=== PATIENT | male | born 1960 | race African-American/Black ===

== ENCOUNTER 2017-10-26 22:35 | Inpatient (IN) | payer BC ==
[~2017-10-26] VITALS: Ht 175.3 cm; Wt 97.1 kg
--- NOTE | ~2017-10-26 | 2DMMODE ---
[facility] [address] [place] [address] 2 D/M-MODE ECHOCARDIOGRAM Name: NGUYỄNTHOMAS Room #: 364-P ADM IN .R.#: [id number] Admission: 10/26/17 Attend Phys: Teo Cardona MD Discharge: Date of : 62 Date of Service: 10/27/17 0817 Report #: [id number] THIS REPORT FOR: //name// APPROVED REPORT Study performed: 10/27/2017 07:14:49 EXAM: Comprehensive 2D, Doppler, and color-flow Echocardiogram Patient Location: Bedside Room #: 364 Status: routine BSA: 2.13 HR: 70 bpm BP: 101/68 mmHg Rhythm: LBBB Other Information Study Quality: Good Indications CVA, LBBB. Hx: HTN, DM, tobacco abuse Echo Enhancing Agent Indication: Rule out Shunt Agent(s) / Amount(s) Used: Agitated Saline 6 cc 2D Dimensions RVDd: 36.35 mm LVEF(%): 23.05 (>50%) IVSd: 12.13 (7-11mm) LVOT Diam: 21.98 (18-24mm) LVDd: 47.16 mm PWd: 12.06 (7-11mm) Ascending Ao: 30.71 (22-36mm) LVDs: 42.18 (25-40mm) Aortic Root: 32.74 mm Vizcaino's LVEF: 23.05 % Volumes Left Atrial Volume (Systole) Single Plane 4CH: 45.07 mL Single Plane 2CH: 64.94 mL LA ESV Index: 29.00 mL/m2 Aortic Valve AoV Peak Moody.: 1.56 m/s AO Peak Gr.: 9.76 mmHg LVOT Max P.92 mmHg LVOT Max V: 0.85 m/s MAKEDA Vmax: 2.07 cm2 [facility] [place] [address] 2 D/M-MODE ECHOCARDIOGRAM Name: THOMAS ADRIAN Room #: 364-P [facility] IN ..#: [id number] Admission: 10/26/17 Attend Phys: Teo Cardona MD Discharge: Date of : 62 Date of Service: 10/27/17 0817 Report #: [id number] Mitral Valve E/A Ratio: 0.6 MV Decel. Time: 255.28 ms MV E Max Moody.: 0.47 m/s MV A Moody.: 0.75 m/s MV PHT: 74.03 ms IVRT: 110.73 ms Pulmonary Valve PV Peak Moody.: 1.03 m/s PV Peak Gr.: 4.20 mmHg Pulmonary Vein P Vein S: 0.43 m/s P Vein D: 0.34 m/s P Vein S/D Ratio: 1.26 Tricuspid Valve TR Peak Moody.: 2.31 m/s RAP Estimate: 5.00 mmHg TR Peak Gr.: 21.33 mmHg PA Pressure: 26.00 mmHg Left Ventricle The left ventricle is normal size. Mild concentric left ventricular hypertrophy. Left ventricular systolic function is severely decreased. Discordant septal motion LVEF is 30-35%. Mild diastolic dysfunction is present (impaired relaxation pattern). Right Ventricle The right ventricle is normal size. Right ventricle is mildly hypokinetic. Atria The left atrium size is normal. No shunting noted by contrast bubble injection. The right atrium size is normal. Aortic Valve The aortic valve is normal in structure. No aortic regurgitation is present. There is no aortic valvular stenosis. Mitral Valve The mitral valve is normal in structure. Mild mitral regurgitation. Tricuspid Valve The tricuspid valve is normal in structure. Mild tricuspid [facility] [address] [place] [address] 2 D/M-MODE ECHOCARDIOGRAM Name: THOMAS ADRIAN Room #: 364-P [facility] IN [facility]#: [id number] Admission: 10/26/17 Attend Phys: Teo Cardona MD Discharge: Date of : 62 Date of Service: 10/27/17 0817 Report #: [id number] regurgitation. Estimated PAP is 25-30mmHg. Pulmonic Valve The pulmonary valve is normal in structure. Mild pulmonic regurgitation. Great Vessels The aortic root is normal in size. The ascending aorta is normal in size. IVC is normal in size and collapses >50% with inspiration. Pericardium There is no pericardial effusion. <Conclusion> Left ventricular systolic function is severely decreased. Discordant septal motion LVEF is 30-35%. Mild diastolic dysfunction No shunting noted by contrast bubble injection. The aortic valve is normal in structure. No aortic valvular stenosis or insufficiency. The mitral valve is normal in structure. Mild mitral regurgitation. Mild tricuspid regurgitation. Estimated pulmonary artery pressure of 25-30mmHg. There is no pericardial effusion. <ELECTRONICALLY SIGNED> By: Cliff Schmidt MD, FACC 10/27/17816 6 6 Cliff Schmidt MD, FACC /INF
--- NOTE | ~2017-10-26 | HC ---
[facility] [place] [address] CONSULTATION Name: THOMAS ADRIAN Room #: 364-P ADM IN M.R.#: [id number] Admission: 10/26/17 Attend Phys: Teo Cardona MD Discharge: Date of : 62 Report #: [id number] THIS REPORT FOR: //name// CC: Teo Cardona [facility] physician/PCP DATE OF SERVICE: 10/27/2017 HISTORY OF PRESENT ILLNESS: This is a 57-year-old male patient who is not a good historian. Part of the reason is that his speech is affected because of what looks like stroke and he is not able to provide any good history. I reviewed the patient's records in the computer. It looks like that the symptoms are going on for a couple of weeks. He went to [facility] and was diagnosed with Duran's palsy and given the steroids. I do not know what workup he did. He does have underlying diabetes and he does not check his blood sugar very often and I do not know what his blood sugar was running throughout this time with the steroids. He believes he has become worst and that is the reason he came in and he is having weakness on the whole right side. REVIEW OF SYSTEMS: Positive for what looks like enlarged heart in the past. He does have a history of diabetes. It is not clear what the control of the diabetes is. He does have a history of hypertension. He says that he has a history of high cholesterol. This was his relevant 14-point review of system, which was carried out. PAST MEDICAL HISTORY: Negative for stroke according to him. FAMILY HISTORY: Positive for stroke. SOCIAL HISTORY: He smokes as well as drinks alcohol. The patient says he does not use any street drugs. PHYSICAL EXAMINATION: The patient's examinations indicate he is alert, responsive, able to follow simple commands. His speech is pretty significantly slurred. I cannot tell about the memory and fund of knowledge. Cranial nerve examination 2-12 was carried out. It demonstrates finding consistent with a right facial palsy. He is significantly weak in the right upper and right lower extremities. His position sense appeared to be intact. Reflexes does appear to be slightly increased on the right side. On the left side, he has no cerebellar sign. The best I can tell there is no papilledema. His blood pressure is 101/68, respirations 20, pulse is 71, and temperature is 98.1. LABORATORY DATA: His lab indicates slightly low sodium, but he also has a creatinine of 2.5. His carotid Doppler showed only mild disease. His MRI is pending. [address] [address] CONSULTATION Name: THOMAS ADRIAN Room #: 364-P [facility] IN ..#: [id number] Admission: 10/26/17 Attend Phys: Teo Cardona MD Discharge: Date of : 62 Report #: [id number] IMPRESSION: 1. Cerebrovascular accident. 2. It looks like cerebrovascular accident is already showing up on CT scan and that will correlate with the patient's symptoms. We will see if MRI can confirm it. 3. Diabetes. 4. History of hypertension, although the blood pressure is reasonably well here. RECOMMENDATIONS: 1. Continue aspirin. 2. We will see what the lipid profile shows in this patient. 3. This patient will need a rehab consult. 4. The patients with subcortical CVA like he has can have deterioration sometime for several days to several weeks, not much can be done about that. 5. We will go ahead and consult the rehab because I believe this patient will need rehab. Rest of the workup will depend upon the outcome of above testing. He may need a cardiology consult and may need some other workup for his renal failure. Thank you very much for this referral. By: [id number] Tip Venegas MD /nt
--- NOTE | ~2017-10-26 | HC ---
[facility] [place] [address] CONSULTATION Name: THOMAS ADRIAN Room #: 364-P ADM IN M.R.#: [id number] Admission: 10/26/17 Attend Phys: Teo Cardona MD Discharge: Date of : 62 Report #: [id number] THIS REPORT FOR: //name// CC: Teo Cardona [facility] physician/PCP DATE OF SERVICE: 10/27/2017 REASON FOR CONSULTATION: CKD. REASON FOR THE PRESENTATION: Right-sided weakness. HISTORY OF PRESENT ILLNESS: This is a 57-year-old with past medical history of diabetes mellitus, hyperlipidemia, hypertension. He visited with [facility] for right-sided facial weakness few weeks ago and was told that this is Duran's palsy. He finished the course of steroids that he was prescribed at [facility] and started to have some right-sided weakness with unsteadiness. His brother was concerned about his slurred speech and the facial droop and brought him for further evaluation and management. On presentation, he was found to have right-sided hemiparesis to left basal ganglia infarct and was admitted for further evaluation and management. He was found to have an elevated creatinine at 2.5. He was also found to have severe cardiomyopathy with an ejection fraction of around 30%. The patient is not aware of any previous kidney problems; however, he was told in [facility] that he needs to see a kidney doctor. No nonsteroidal anti-inflammatory medications intake. No family history of chronic kidney disease. PAST MEDICAL HISTORY: 1. Diabetes mellitus. 2. Hypertension. 3. Hyperlipidemia. 4. New right-sided hemiparesis. 5. Status post thoracotomy and decortication back in 1998. MEDICATIONS: 1. Metformin. 2. Carvedilol. 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 He is an everyday smoker. No drug abuse; however, he drinks up to half a pint of vodka on the weekends. FAMILY HISTORY: Mom had heart disease. Sister of cancer. REVIEW OF SYSTEMS: The patient has significant dysphasia, but able to give me a full review of system as the following: GENERAL: No fever or chills. [facility] [address] [place] [address] CONSULTATION Name: THOMAS ADRIAN Room #: 364-P [facility] IN [facility].#: [id number] Admission: 10/26/17 Attend Phys: Teo Cardona MD Discharge: Date of : 62 Report #: [id number] CARDIOVASCULAR: No chest pain or palpitation. PULMONARY: No cough or hemoptysis. GASTROINTESTINAL: No nausea and vomiting, but difficulty swallowing. GENITOURINARY: No frequency, no urgency. NEUROLOGICAL: Significant for slurred speech, facial droop, difficulty swallowing, right-sided weakness on both upper extremities and lower extremities. PHYSICAL EXAMINATION: GENERAL: He is alert, oriented. He has significant aphasia, right-sided facial droop, right-sided hemiparesis. VITAL SIGNS: Blood pressure is 114/63, pulse rate is 83. HEAD AND NECK: Right-sided facial palsy. CHEST: No crackles. CARDIOVASCULAR: Regular with no rub detected. ABDOMEN: Soft and nontender with no hepatosplenomegaly. LOWER EXTREMITIES: Trace edema. NEUROLOGIC: Evidence of right-sided weakness and right-sided hemiparesis. LABORATORY DATA: Laboratory values reviewed. Creatinine on presentation was elevated at 2.5. Sodium was 132, potassium 4.3, BUN 54. Urine studies are not done. Hemoglobin is 14.1. ASSESSMENT, IMPRESSION, PLAN: 1. Acute stroke. 2. Hypertension. 3. Diabetes mellitus. 4. Chronic kidney disease. 5. The fact that he was told at [facility] that he had some kidney issues is highly suggestive of chronic kidney disease related to his comorbid conditions including diabetes mellitus and hypertension. His blood pressure seems to be on the low side and I would try to avoid any aggressive blood pressure reduction given his acute stroke. 6. Discontinue the IV fluid given his cardiomyopathy. 7. I will send appropriate chronic kidney disease followup including urine studies, ultrasounds. 8. Repeat labs in the morning. 9. Avoid nephrotoxins. 10. Check hemoglobin A1c. 11. Check his lipid profile. 12. Defer the management of his throat to the neurological team. By: [id number] Low Quinn MD /nt
--- NOTE | ~2017-10-26 | HC ---
[facility] [place] [address] [place] [address] CONSULTATION Name: THOMAS ADRIAN JR Room #: 364-P ADM IN M.R.#: [id number] Admission: 10/26/17 Attend Phys: Teo Cardona MD Discharge: Date of : 62 Report #: [id number] THIS REPORT FOR: //name// CC: Teo Cardona [facility] physician/PCP DATE OF SERVICE: 10/27/2017 HISTORY OF PRESENT ILLNESS: The patient is a 57-year-old right-handed -[place] male who was admitted with right-sided weakness noted approximately 2 weeks ago. Apparently was evaluated at another facility approximately 2 weeks ago and was diagnosed with Duran's palsy with right facial weakness, given steroids. He has had problems with balance deficits, right upper and lower extremity weakness, has had some falls including 2 falls yesterday. 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 He was admitted to [facility] and CT scan revealed subacute changes of the left side. This is noted in the left basal ganglia. MRI is currently pending. Ultrasound of the carotid shows some mild atherosclerotic plaquing [id number] within the left common carotid, resulting in seoe-uz-oeargoau short segment stenosis. We are seeing the patient in rehabilitation medicine consultation. PAST MEDICAL HISTORY: Includes diabetes mellitus, hypertension, elevated cholesterol, left bundle branch block, Duran's palsy, right thoracotomy with decortication in 1998. ALLERGIES: No known drug allergies. MEDICATIONS: Please see the full medication listing. HABITS: Current every day smoker, 2-3 cigarettes per day for 20 years. Alcohol a couple of beers daily, drinks up to a half a pint of vodka per day on weekends. FAMILY HISTORY: Heart disease. Mother at age 77, history of cancer. Sister from cancer and another sister had a CVA. SOCIAL HISTORY: Lives in an apartment alone. There are five steps. He has a brother and a sister in the area and his brother works during the day. The sister works during the evening. 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 REVIEW OF SYSTEMS: Has concerns regarding his strength with weakness of the right side upper and lower extremity. Concerns regarding balance. Did not complain of any chest pain, shortness of breath, abdominal discomfort. No specific visual complaints. Did not offer any complaints of bowel or bladder changes. [facility] [address] [place] [address] CONSULTATION Name: THOMAS ADRIAN Room #: 364-P [facility] IN .R.#: [id number] Admission: 10/26/17 Attend Phys: Teo Cardona MD Discharge: Date of : 62 Report #: [id number] PHYSICAL EXAMINATION: GENERAL: He is a pleasant 57-year-old right-handed -[place] male in no obvious distress. VITAL SIGNS: Last recorded temperature 98.7, pulse 67, respirations 19, and blood pressure 147/91. He does have EOMs are full. I could not detect any obvious visual field neglect to confrontation. He has right facial weakness with depressed right nasolabial fold. He has functional range of motion. Strength of left upper and left lower extremity without focal weakness. Right upper extremity reveals functional range of motion, strength is a grade 4-/5 to 3+/5. He has definite decreased coordination and decreased fine finger dexterity. Right hand and right arm demonstrate clumsiness. EXTREMITIES: He is much better. Left upper extremity range of motion with normal appearing strength. Right lower extremity again is weak. I would grade him at a 3+/5. Left lower extremity is 5/5. DTRs he has a positive Do's right upper extremity, otherwise DTRs are grade 2 bilateral upper and lower extremities, there is no clonus at the right ankle. Sensation was reasonably intact to simultaneous stimulation both upper and lower extremities as well as the right face. ASSESSMENT: A 57-year-old right-handed -[place] male with the following problem list: 1. Left subcortical basal ganglia cerebrovascular accident. 2. Right-sided hemiparesis with right upper and right lower extremity weakness, right facial droop. 3. Previous diagnosis of Duran's palsy. 4. Acute renal insufficiency versus chronic kidney disease. 5. Diabetes mellitus type 2. 6. Hypertension. 7. Hyperlipidemia. 8. History of left bundle branch block. 9. History of tobacco abuse. PLAN: The patient is being seen for rehabilitation consultation. The Therapy evaluations are underway. MRI of the brain is pending. We will need to see how he does in therapies. He certainly has significant functional deficits, has had 2 falls yesterday and will likely warrant an acute in-hospital inpatient rehabilitation stay to try to further maximize his functional independence ____ stroke. We will be glad to follow along with you regarding his rehab therapy needs. <ELECTRONICALLY SIGNED> By: Johnie Wilkerson MD 10/28/17 1409 0947 1021 Johnie Wilkerson MD /[facility]
--- NOTE | ~2017-10-26 | HC ---
[facility] [place] [address] CONSULTATION Name: THOMAS ADRIAN JR Room #: 364-P ADM IN M.R.#: [id number] Admission: 10/26/17 Attend Phys: Teo Cardona MD Discharge: Date of : 62 Report #: [id number] THIS REPORT FOR: //name// CC: Teo Cardona [facility] physician/PCP DATE OF SERVICE: 10/27/2017 INDICATION: Cardiomyopathy. HISTORY OF PRESENT ILLNESS: This is a 57-year-old gentleman presenting with right-sided weakness for the past 2 weeks. It seems that he initially developed symptoms several weeks ago, evaluated in [facility] and diagnosed with Duran's palsy. Since then, he has had a progression of his right-sided facial droop and slurred speech. He then developed right-sided weakness and has had a few falls. He denies any episodes of chest pains, shortness of breath or palpitations. An echo reveals severe LV dysfunction, EF in the 30%-35% range and mild mitral regurgitation. PAST MEDICAL HISTORY: The patient reports having diabetes mellitus, hypertension and hypercholesterolemia. He has not had regular followup secondary to loss of insurance. ALLERGIES: None. MEDICATIONS: Include metformin and carvedilol 12.5 mg twice a day. SOCIAL HISTORY: Positive for tobacco use. FAMILY HISTORY: Positive for CAD. REVIEW OF SYSTEMS: A full 10-point review of systems was performed. Only the pertinent positives and negatives are described in the HPI. PHYSICAL EXAMINATION: VITAL SIGNS: Blood pressure is 120/70, heart rate is 90 beats per minute. GENERAL APPEARANCE: A well-developed, well-nourished male in no acute distress. HEAD AND EYES: Normocephalic. Sclerae are anicteric. ENT: Oral mucosa moist. NECK: Supple. LUNGS: Clear to auscultation. CARDIAC: RRR. S1, S2 positive. ABDOMEN: Soft, nontender. EXTREMITIES: No cyanosis, no edema. ECG reveals sinus rhythm, left bundle branch block. [facility] [address] [place] [address] CONSULTATION Name: THOMAS ADRIAN Room #: 364-[facility] IN [facility].#: [id number] Admission: 10/26/17 Attend Phys: Teo Cardona MD Discharge: Date of : 62 Report #: [id number] LABORATORY VALUES: White count is 9.2, hemoglobin is 14.1. Sodium is 132, creatinine is 2.5, troponin is negative. CT scan of the head reveals decreased attenuation in the left basal ganglia may represent an infarct. IMPRESSION AND PLAN: 1. Cardiomyopathy, no prior cardiac history. He offers no complaints of angina, dyspnea or congestion. We will need an ischemic evaluation. However, given his renal insufficiency, would opt for noninvasive stress testing. Continue with carvedilol. No MELINA inhibitor or ARB at this time due to renal insufficiency. 2. Cerebrovascular accident, slurred speech and right-sided weakness. Aspirin as per Neurology. 3. Hypertension, continue carvedilol. 4. Acute kidney injury, recommend renal evaluation. Hold on MELINA inhibitor or ARB. 5. Hypercholesterolemia, consider statin therapy. 6. Tobacco use, complete smoking cessation is recommended. <ELECTRONICALLY SIGNED> By: Seth Roque MD 10/28/17 0800 1707 03 Seth Roque MD /nt
--- NOTE | ~2017-10-26 | EKG ---
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 : 1960 Requested By: Cheri Washington Order Number: [id number] MD: Cliff Schmidt Measurements Intervals [place] Rate: 77 P: 55 ME: 155 QRS: 15 QRSD: 165 T: 197 QT: 421 QTc: 477 Interpretive Statements Sinus rhythm Left bundle branch block Compared to ECG 04/15/1999 07:58:00 Left bundle-branch block now present Sinus tachycardia no longer present Electronically Signed On 10-27-2017 10:34:36 CDT by Cliff Schmidt [email or web address] <ELECTRONICALLY SIGNED> By: Cliff Schmidt MD, [facility] 10/27/17 1034 2300 2300 Cliff Schmidt MD, [facility] /EPI
[2017-10-26 22:38] VITALS: BP 140/90
[2017-10-26 23:09] LABS: ABSOLUTE NEUTROPHILS 4.9 thou/uL (1.4-8.2); BASOPHILS 0.9 % (0.0-2.0); EOSINOPHILS 3.4 % (0.0-3.0); HEMATOCRIT 41.4 % (42.0-52.0); HEMOGLOBIN 14.1 gm/dL (14.0-18.0); LYMPHOCYTES 33.4 % (24.0-44.0); MCH 31.1 pg (26.0-34.0); MCHC 34.1 g/dL (28.0-37.0); MCV 91.1 fL (80.0-100.0); MONOCYTES 9.6 % (1.0-8.0); PLATELET COUNT 399 thou/uL (150-400); POLYS 52.7 % (36.0-66.0); RBC 4.55 mil/uL (4.50-6.00); RDW 13.2 % (10.5-14.5); WBC 9.2 thou/uL (4.0-11.0)
[2017-10-26] MEDS ORDERED: GLUCOPHAGE1000 MG PO (23:09)
[2017-10-26] MEDS ORDERED: CARVEDILOL12.5 MG PO (23:10)
[2017-10-26 23:18] LABS: CREATININE 2.5 mg/dL (0.7-1.3); MAGNESIUM 2.3 mg/dL (1.8-2.4); POTASSIUM 4.3 mmol/L (3.5-5.1)
[2017-10-27] VITALS (8 sets, daily range): BP systolic 101–147; BP diastolic 63–91
[2017-10-27 04:25] LABS: ALBUMIN 3.7 g/dL (3.4-5.0); DIRECT BILIRUBIN 0.1 mg/dL (<0.1-0.3); TOTAL BILIRUBIN 0.4 mg/dL (<0.1-1.0); TOTAL PROTEIN 7.5 g/dL (6.4-8.2)
[2017-10-27] MEDS ORDERED: GLUCOPHAGE XR500 MG PO (20:19)
[2017-10-27] MEDS ORDERED: ZESTORETIC 20-1 EAC2 PO (20:20)
[2017-10-27] MEDS ORDERED: LOVASTATIN 20 M20 MG PO (20:22)
[2017-10-27 22:07] LABS: GLYCOHEMOGLOBIN (HGB A1C) 6.6 % (4.8-5.6)
[2017-10-28 00:39] LABS: URINE BILIRUBIN NEGATIVE (Negative); URINE BLOOD 1+ (Negative); URINE CLARITY CLEAR; URINE COLOR YELLOW; URINE GLUCOSE-RANDOM* NEGATIVE (Negative); URINE KETONES NEGATIVE (Negative); URINE LEUKOCYTES-REFLEX NEGATIVE (Negative); URINE NITRITE-REFLEX NEGATIVE (Negative); URINE PROTEIN (DIPSTICK) NEGATIVE (Negative); URINE UROBILINOGEN 0.2 E.U./dl (0.2-1.0)
[2017-10-28 00:52] LABS: HYALINE CASTS 0-3 Few /LPF (None Seen); SQUAMOUS 0-3 Few /LPF (0-3); URINE RBC 3-10 Few /HPF (0-2)
[2017-10-28 00:53] LABS: BACTERIA-REFLEX None Seen /HPF (None Seen); CRYSTALS None Seen /LPF (None Seen); URINE WBC-REFLEX 0-5 Rare /HPF (0-5)
[2017-10-28 05:10] VITALS: BP 117/70
[2017-10-28 05:28] LABS: URINE CREATININE-RANDOM* 91.5 mg/dL; URINE PROTEIN-RANDOM* 9.8 mg/dL (<11.9)
[2017-10-28 06:26] LABS: ALBUMIN 3.4 g/dL (3.4-5.0); ANION GAP 8 mmol/L (7-16); BUN 34 mg/dL (7-18); CALCIUM 8.9 mg/dL (8.5-10.1); CHLORIDE 102 mmol/L (98-107); CHOLESTEROL 167 mg/dL (<200); CO2 23 mmol/L (21-32); CREATININE 1.8 mg/dL (0.7-1.3); GLUCOSE 102 mg/dL (74-106); HDL CHOLESTEROL 41 mg/dL (>40); LDL CHOLESTEROL 95 mg/dL (<100); MAGNESIUM 1.9 mg/dL (1.8-2.4); POTASSIUM 4.9 mmol/L (3.5-5.1); SGOT 19 U/L (15-37); SGPT 39 U/L (30-65); SODIUM 133 mmol/L (136-145); TC:HDL 4.1 Ratio (Not establshd); TOTAL BILIRUBIN 0.6 mg/dL (<0.1-1.0); TOTAL PROTEIN 7.2 g/dL (6.4-8.2); TRIGLYCERIDE 157 mg/dL (<150); TROPONIN-I < 0.04 ng/mL (<0.06); VLDL 31 mg/dL (<40)
[2017-10-28 08:04] VITALS: BP 141/96
[2017-10-28 11:23] VITALS: BP 164/104
[2017-10-28 16:10] VITALS: BP 139/88
[2017-10-28 20:20] VITALS: BP 141/81
[2017-10-29 05:35] VITALS: BP 129/85
[2017-10-29 08:29] VITALS: BP 136/94
[2017-10-29 12:00] VITALS: BP 128/81
[2017-10-29 15:41] VITALS: BP 136/97
[2017-10-29 20:30] VITALS: BP 149/89
[2017-10-30 04:30] VITALS: BP 132/92
[2017-10-30 07:49] VITALS: BP 130/83
[2017-10-30 08:00] LABS: ALBUMIN 3.1 g/dL (3.4-5.0); CALCIUM 9.1 mg/dL (8.5-10.1); CREATININE 1.6 mg/dL (0.7-1.3); PHOSPHORUS 3.2 mg/dL (2.5-4.9); POTASSIUM 4.4 mmol/L (3.5-5.1)
[2017-10-30 11:27] VITALS: BP 123/85
[2017-10-30 15:41] VITALS: BP 116/70
[2017-10-30 20:20] VITALS: BP 133/82
[2017-10-31 04:45] VITALS: BP 138/79
[2017-10-31 05:50] LABS: ABSOLUTE NEUTROPHILS 4.6 thou/uL (1.4-8.2); BASOPHILS 1.3 % (0.0-2.0); EOSINOPHILS 4.8 % (0.0-3.0); HEMATOCRIT 34.9 % (42.0-52.0); HEMOGLOBIN 12.3 gm/dL (14.0-18.0); LYMPHOCYTES 30.4 % (24.0-44.0); MCH 31.9 pg (26.0-34.0); MCHC 35.3 g/dL (28.0-37.0); MCV 90.6 fL (80.0-100.0); MONOCYTES 9.7 % (1.0-8.0); PLATELET COUNT 347 thou/uL (150-400); POLYS 53.8 % (36.0-66.0); RBC 3.86 mil/uL (4.50-6.00); RDW 12.6 % (10.5-14.5); WBC 8.6 thou/uL (4.0-11.0)
[2017-10-31 06:06] LABS: CALCIUM 8.9 mg/dL (8.5-10.1); CREATININE 1.6 mg/dL (0.7-1.3); PHOSPHORUS 3.8 mg/dL (2.5-4.9); POTASSIUM 4.4 mmol/L (3.5-5.1)
[2017-10-31 08:17] VITALS: BP 139/93
[2017-10-31 12:09] LABS: KAPPA FREE LIGHT CHAINS 33.1 mg/L (3.3-19.4); KAPPA/LAMBDA RATIO 1.72 (0.26-1.65); LAMBDA FREE LIGHT CHAINS 19.3 mg/L (5.7-26.3)
[2017-10-31 12:36] VITALS: BP 140/89
[2017-10-31] MEDS ORDERED: ACETAMINOPHEN325 M1 PO (14:26)
[2017-10-31] MEDS ORDERED: CARVEDILOL12.5 MG PO (14:26)
[2017-10-31] MEDS ORDERED: LOVASTATIN 20 M20 MG PO (14:31)
[2017-10-31 15:07] LABS: GLOBULIN TOTAL 3.9 g/dL (2.2-3.9); M-SPIKE Not Observed g/dL (Not Observed)
== END 2017-10-31 15:57 | DRG 65 ==
LOC: ER 22:35 → 3W 23:59 → EROBS 23:59 → 3W 10-27 00:42
PROVIDERS: Emergency Medicine; Hospitalist; Internal Medicine Nephrology; Nurse Practitioner Acute Care; Psychiatry & Neurology Neuromuscular Medicine
DX: I63.9 Cerebral infarction, unspecified (principal); G81.91 Hemiplegia, unspecified affecting right dominant side; I42.9 Cardiomyopathy, unspecified; N17.9 Acute kidney failure, unspecified; F17.210 Nicotine dependence, cigarettes, uncomplicated; G51.0 Bell's palsy; I44.7 Left bundle-branch block, unspecified; E78.5 Hyperlipidemia, unspecified; E11.22 Type 2 diabetes mellitus with diabetic chronic kidney disease; I12.9 Hypertensive chronic kidney disease with stage 1 through stage 4 chronic kidney disease, or unspecified chronic kidney disease; N18.9 Chronic kidney disease, unspecified; E78.00 Pure hypercholesterolemia, unspecified; Z82.3 Family history of stroke; Z79.899 Other long term (current) drug therapy; Z79.84 Long term (current) use of oral hypoglycemic drugs; Z82.49 Family history of ischemic heart disease and other diseases of the circulatory system; Z23 Encounter for immunization
CPT/HCPCS: 10879

== ENCOUNTER 2017-10-31 12:08 | Inpatient (IN) | payer BC ==
[~2017-10-31] VITALS: Ht 175.3 cm; Wt 96.6 kg
--- NOTE | ~2017-10-31 | H ---
[facility] [place] [place] [address] HISTORY AND PHYSICAL Name: THOMAS ADRIAN Room #: 509-P DIS IN M.R.#: [id number] Admission: 10/31/17 Attend Phys: Johnie Wilkerson MD Discharge: 11/10/17 Date of : 62 Report #: [id number] THIS REPORT FOR: //name// CC: Johnie Wilkerson [facility] physician/PCP DATE OF SERVICE: 10/31/2017 ADDENDUM Neurology indicates that the patient may warrant a 30-day event monitor for AFib. I would like to defer that to Cardiology. The patient will need to have contact with Dr. Roque and follow up with him post-discharge. Dr. Roque's note, however, indicates he should continue with his medications and follow up at [facility] upon discharge. This will need to be further clarified. <ELECTRONICALLY SIGNED> By: Johnie Wilkerson MD 11/16/17 1454 0815 0844 Johnie Wilkerson MD /[facility]
--- NOTE | ~2017-10-31 | PLAN ---
[facility] [place] [place] [address] REHAB UNIT PLAN OF CARE Name: THOMAS ADRIAN JR Room #: 509-P [facility] IN M.R.#: [id number] Admission: 10/31/17 Attend Phys: Johnie Wilkerson MD Discharge: 11/10/17 Date of : 62 Report #: [id number] THIS REPORT FOR: //name// CC: Johnie Wilkerson [facility] physician/PCP DATE OF SERVICE: 11/03/2017 SUBJECTIVE: The patient is a 57-year-old male seen back today in followup. Last recorded temperature 98.6, pulse 84, respirations 19, blood pressure is 135/75. He is alert, dysarthric. He does have right-sided hemiparesis. Transfers are supervision with gait standby assistance 250 feet without a device. In occupational therapy, lower body dressing is contact guard. In speech therapy, he has mild comprehensive deficits. He is on a regular diet with all liquids. ASSESSMENT: 1. Left subcortical basal ganglia cerebrovascular accident. 2. Right-sided hemiparesis with right upper extremity and right lower extremity weakness and right facial droop. 3. Previous diagnosis of Duran's palsy. 4. Acute renal insufficiency versus chronic kidney disease. 5. Cardiomyopathy, possibly due to hypertensive or idiopathic. 6. Hypercholesterolemia. 7. Tobacco abuse. 8. Hypertension. 9. History of left bundle-branch block. PLAN: The overall plan of care is based on the preadmission screen, post-admission physician evaluation and information garnered from therapy assessments. 1. Estimated length of stay is probably 1 week. We have tentatively set him up for a discharge date of next , 11/10/2017. 2. Medical prognosis is reasonably good. 3. Anticipated interventions includes the interdisciplinary acute inpatient rehabilitation program with the goal of maximizing his functional independence. He can hopefully return back to his prior living situation. 4. Anticipated functional outcome would be for him to become modified independent at least at the walker level with mobility and ADLs with improved communication as well as cognition. 5. Discharge destination would be back to the home setting. 6. Expected therapy by discipline includes PT, OT and speech 1 hour per day [address] [address] REHAB UNIT PLAN OF CARE Name: THOMAS ADRIAN Room #: 509-P [facility] IN .R.#: [id number] Admission: 10/31/17 Attend Phys: Johnie Wilkerson MD Discharge: 11/10/17 Date of : 62 Report #: [id number] each 5 days a week throughout the duration of the acute inpatient rehabilitation stay. <ELECTRONICALLY SIGNED> By: Johnie Wilkerson MD 11/16/17 1504 0923 2343 Johnie Wilkerson MD /PMT
--- NOTE | ~2017-10-31 | H ---
[facility] [place] [address] HISTORY AND PHYSICAL Name: THOMAS ADRIAN JR Room #: 509-P [facility] IN M.R.#: [id number] Admission: 10/31/17 Attend Phys: Johnie Wilkerson MD Discharge: 11/10/17 Date of : 62 Report #: [id number] THIS REPORT FOR: //name// CC: Johnie Wilkerson [facility] physician/PCP DATE OF SERVICE: 10/31/2017 HISTORY AND PHYSICAL/POST-ADMISSION PHYSICIAN EVALUATION HISTORY OF PRESENT ILLNESS: The patient is a 57-year-old right-handed -[place]i male, who was admitted to [facility] originally with right-sided weakness that was noted to have occurred approximately 2 weeks ago. Apparently, he was evaluated at another facility at that time and diagnosed with Duran's palsy with right facial weakness, given steroids. He has had problems with balance deficits, right upper and right lower extremity weakness, and he has had some falls including 2 falls on the day prior to his [facility] admission. 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 Upon admission, CT scan revealed subacute changes of the left side noted in the left basal ganglia. MRI showed an acute recent infarct within the left hackett radiata, parietal periventricular white matter. MRA showed no evidence of hemodynamically significant stenosis. Ultrasound showed some mild atherosclerotic plaquing, wpyc-ng-pdsvkyvc, within the left common carotid, resulting in smud-vb-gyzjigbk short segment stenosis. Cardiology saw him and he was diagnosed with cardiomyopathy, possibly due to hypertensive or idiopathic. Nuclear stress test was noted to be nonischemic. Plan was to continue with the medical therapy. He continued with the slurred speech and right-sided weakness. He was noted to have significant functional mobility, ADLs and cognitive communication concerns. He had an acute renal injury with an elevated creatinine and Nephrology has been involved. He was felt to be ready and has now been admitted for acute in-hospital inpatient rehabilitation. PAST MEDICAL HISTORY: Includes diabetes mellitus, hypertension, elevated cholesterol, left bundle branch block, Duran's palsy, right thoracotomy with decortication in 1998. ALLERGIES: No known drug allergies. MEDICATIONS: Please see the full medication listing. Each of these was individually reconciled and includes vitamins, herbals and supplements. HABITS: Current everyday smoker, 2-3 cigarettes per day for 20 years. Alcohol is a couple of beers daily, drinks up to a half a pint of vodka per day on weekends. FAMILY HISTORY: Heart disease. Mother at age 77 with history of cancer. [address] [address] HISTORY AND PHYSICAL Name: THOMAS ADRIAN Room #: 509-P [facility] IN M.R.#: [id number] Admission: 10/31/17 Attend Phys: Johnie Wilkerson MD Discharge: 11/10/17 Date of : 62 Report #: [id number] Sister from cancer and another sister had a CVA. SOCIAL HISTORY: Lives in an apartment alone. There are 5 steps in. He has a brother and a sister in the area and his brother works during the day, his sister works during the evening. 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 REVIEW OF SYSTEMS: He has concerns regarding balance, his slurred speech, right-sided weakness. No complaints of chest pain, shortness of breath or abdominal discomfort. PHYSICAL EXAMINATION: GENERAL: Pleasant 57-year-old -S[place]i male, in no obvious distress. He was seen earlier. He was rather sleepy, but responsive. VITAL SIGNS: Last recorded temperature is 98.8, pulse 69, respirations 18, blood pressure 146/90. HEENT: EOMs appeared to be full without any obvious visual field neglect to confrontation. He has got the mild right facial weakness. He has a depressed right nasolabial fold. CHEST: Sounded clear to auscultation. CARDIAC: Regular rate and rhythm. ABDOMEN: Bowel sounds positive, nontender. GENITOURINARY AND RECTAL: Deferred. MUSCULOSKELETAL: Functional range of motion with strength full of the left upper and left lower extremity. Right upper extremity revealed functional range of motion with strength grade 4-/5 to 3+/5. He has decreased coordination of that right upper extremity with fine finger dexterity. He does have some right upper extremity clumsiness. Right lower extremity is a grade 3+ to 4-/5. DTRs reveal positive Do's to right upper extremity. Lower extremity is grade 2. There is no clonus. Sensation was recently checked during my consult and was reasonably intact to simultaneous stimulation of both upper extremities and right face. Functionally, he has been transferring with standby assistance with gait min assist short distances. ASSESSMENT: 1. Left subcortical basal ganglia cerebrovascular accident. 2. Right-sided hemiparesis with right upper extremity and right lower extremity weakness and right facial droop. 3. Previous diagnosis of Duran's palsy. 4. Acute renal insufficiency versus chronic kidney disease. 5. Cardiomyopathy, possibly due to hypertensive or idiopathic. 6. Hypercholesterolemia. 7. Tobacco abuse. 8. Hypertension. 9. History of left bundle branch block. PLAN: The patient is admitted for acute in-hospital inpatient rehabilitation. [facility] [address] [place] [address] HISTORY AND PHYSICAL Name: THOMAS ADRIAN JR Room #: 509-P [facility] IN M.R.#: [id number] Admission: 10/31/17 Attend Phys: Johnie Wilkerson MD Discharge: 11/10/17 Date of : 62 Report #: [id number] From a postadmission physician evaluation perspective, there are no relevant changes since the preadmission screening. Please see the above review of prior and current medical and functional conditions and comorbidities. Please see the patient's previous and current functional status. As far as risk of complications, the patient has multiple medical comorbidities as noted above. The initial plan of care involves the interdisciplinary acute inpatient rehabilitation program, working with him on maximizing his functional independence with mobility, ADLs and communication with his dysarthria and cognitive concerns. Prognosis is reasonably good with estimated length of stay probably at least 10 days to 2 weeks pending progress. Potential barriers would include his multiple medical comorbidities and decreased functional status. ADDENDUM Neurology indicates that the patient may warrant a 30-day event monitor for AFib. I would like to defer that to Cardiology. The patient will need to have contact with Dr. Roque and follow up with him post-discharge. Dr. Roque's note, however, indicates he should continue with his medications and follow up at [facility] upon discharge. This will need to be further clarified. <ELECTRONICALLY SIGNED> By: Johnie Wilkerson MD 11/15/17 0942 0812 0846 Johnie Wilkerson MD /nt
--- NOTE | ~2017-10-31 | HC ---
[facility] [place] [address] CONSULTATION Name: THOMAS ADRIAN JR Room #: 509-P ADM IN M.R.#: [id number] Admission: 10/31/17 Attend Phys: Johnie Wilkerson MD Discharge: Date of : 62 Report #: [id number] THIS REPORT FOR: //name// CC: Johnie Wilkerson [facility] physician/PCP DATE OF SERVICE: 11/02/2017 MICROBIOLOGY PROFESSOR: Johnie Darden, PhD REASON FOR CONSULTATION: To provide information pertinent to treatment planning on the patient's comprehensive rehabilitation treatment plan. HISTORY OF PRESENT ILLNESS: The patient is a 57-year-old right handed male who developed right-sided weakness approximately 2-1/2 weeks ago and was subsequently diagnosed with Duran palsy for a time. He had balance deficits, right upper and lower extremity weakness and some falls. 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 After admission to [facility], he was evaluated and diagnosed with a left subcortical basal ganglia cerebrovascular accident. He continues to work to overcome the right-sided weakness as well as some slurring of speech. The assessment as documented in his record includes the cerebrovascular accident as well as acute renal insufficiency versus chronic kidney disease, diabetes mellitus type 2, hypertension, hyperlipidemia, history of left bundle-branch block, history of tobacco abuse and daily alcohol use. METHODS OF EVALUATION: Methods used include review of the patient's record, consultation with unit staff, clinical interview and mini-mental status exam 2. 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 He reported he has 2 adult children, a son in town and a daughter who lives in [place]. He lives alone. OBSERVATIONS AND FINDINGS OF THE EXAMINATION: The patient displayed a mildly irritable mood, but was cooperative with the examination. He denied depression and stated that he is hopeful that through hard work, he can overcome his current physical deficits. His memory for recent and remote personal events was intact. On the mini-mental status exam 2, the patient scored in the average range, although there were mild deficits with regard to registration and sustained attention and concentration. The writing and drawing portions of the exam were deferred due to his proclaimed inability to use his right hand. [facility], [facility] [address] [place] [address] CONSULTATION Name: THOMAS ADRIAN Room #: 509-P [facility] IN .R.#: [id number] Admission: 10/31/17 Attend Phys: Johnie Wilkerson MD Discharge: Date of : 62 Report #: [id number] repetition, comprehension, reading, orientation and recall were all intact. He does display notable slurring of speech. CONCLUSIONS: This claimant patient displays some slurring of speech and some struggle with focus and attention and concentration. These are consistent with a mild vascular neurocognitive disorder. It is recommended that supportive therapy to address his frustration and irritability related to his ongoing functional deficits and should there is not continued to be improvement in his focus and concentration, neuropsychological examination should be considered. By: [id number] Johnie Darden, PhD /nt
[~2017-10-31 12:08] MED LIST: CARVEDILOL12.5 MG PO; GLUCOPHAGE XR500 MG PO; GLUCOPHAGE1000 MG PO; LOVASTATIN 20 M20 MG PO; ZESTORETIC 20-1 EAC2 PO
[2017-10-31] MEDS ORDERED: ACETAMINOPHEN325 M1 PO (14:26)
[2017-10-31] MEDS ORDERED: CARVEDILOL12.5 MG PO (14:26)
[2017-10-31] MEDS ORDERED: LOVASTATIN 20 M20 MG PO (14:31)
[2017-10-31 16:15] VITALS: BP 147/87
[2017-10-31 19:34] VITALS: BP 146/90
[2017-11-01 07:14] LABS: CALCIUM 8.7 mg/dL (8.5-10.1); CREATININE 1.6 mg/dL (0.7-1.3); POTASSIUM 4.4 mmol/L (3.5-5.1)
[2017-11-01 08:10] VITALS: BP 130/92
[2017-11-01 08:43] LABS: HEMATOCRIT 36.1 % (42.0-52.0); HEMOGLOBIN 12.4 gm/dL (14.0-18.0); MCH 31.4 pg (26.0-34.0); MCHC 34.3 g/dL (28.0-37.0); MCV 91.5 fL (80.0-100.0); RBC 3.94 mil/uL (4.50-6.00); RDW 13.3 % (10.5-14.5); WBC 7.7 thou/uL (4.0-11.0)
[2017-11-01 19:30] VITALS: BP 149/77
[2017-11-02 07:37] VITALS: BP 117/79
[2017-11-02 19:15] VITALS: BP 135/75
[2017-11-03 07:05] VITALS: BP 147/91
[2017-11-03 19:42] VITALS: BP 141/82
[2017-11-04 06:08] LABS: ALBUMIN 2.9 g/dL (3.4-5.0); CALCIUM 8.8 mg/dL (8.5-10.1); CREATININE 1.7 mg/dL (0.7-1.3); PHOSPHORUS 3.3 mg/dL (2.5-4.9); POTASSIUM 4.4 mmol/L (3.5-5.1)
[2017-11-04 07:15] VITALS: BP 133/77
[2017-11-04 21:23] VITALS: BP 142/82
[2017-11-05 07:25] VITALS: BP 136/77
[2017-11-05 20:03] VITALS: BP 130/82
[2017-11-06 08:00] VITALS: BP 152/85
[2017-11-06 20:07] VITALS: BP 167/100
[2017-11-06 21:46] VITALS: BP 168/99
[2017-11-07 08:07] VITALS: BP 148/91
[2017-11-07 19:20] VITALS: BP 147/80
[2017-11-08 04:40] LABS: CALCIUM 8.8 mg/dL (8.5-10.1); CREATININE 1.6 mg/dL (0.7-1.3); PHOSPHORUS 3.6 mg/dL (2.5-4.9); POTASSIUM 4.1 mmol/L (3.5-5.1)
[2017-11-08 08:15] VITALS: BP 140/85
[2017-11-08 19:34] VITALS: BP 129/75
[2017-11-09 07:40] VITALS: BP 144/87
[2017-11-09 11:17] VITALS: BP 144/87
[2017-11-09 15:50] VITALS: BP 128/70
[2017-11-09 20:35] VITALS: BP 138/73
[2017-11-10 07:28] VITALS: BP 125/68
[2017-11-10] MEDS ORDERED: ASPIRIN325 PO (07:52)
[2017-11-10] MEDS ORDERED: CARVEDILOL12.5 MG PO (07:52)
[2017-11-10] MEDS ORDERED: PROTONIX40 M1 PO (07:52)
[2017-11-10] MEDS ORDERED: LISINOPRIL20 MG PO (07:52)
[2017-11-10] MEDS ORDERED: LOVASTATIN 20 M20 MG PO (07:52)
[2017-11-10] MEDS ORDERED: SENNA8.6 MG PO (07:53)
[2017-11-10 09:07] VITALS: BP 144/87
== END 2017-11-10 10:56 | disposition home health service (06) | DRG 56 ==
LOC: ENTRNSPT 11-10 10:50 → EDTRNSPTSTS 11-10 10:52
PROVIDERS: Internal Medicine Nephrology; Physical Medicine & Rehabilitation
DX: G81.91 Hemiplegia, unspecified affecting right dominant side (principal); I63.9 Cerebral infarction, unspecified; I42.9 Cardiomyopathy, unspecified; N17.9 Acute kidney failure, unspecified; G51.0 Bell's palsy; R47.81 Slurred speech; I44.7 Left bundle-branch block, unspecified; F17.210 Nicotine dependence, cigarettes, uncomplicated; Z60.2 Problems related to living alone; R29.810 Facial weakness; E78.00 Pure hypercholesterolemia, unspecified; N18.9 Chronic kidney disease, unspecified; E11.22 Type 2 diabetes mellitus with diabetic chronic kidney disease; I12.9 Hypertensive chronic kidney disease with stage 1 through stage 4 chronic kidney disease, or unspecified chronic kidney disease; E78.5 Hyperlipidemia, unspecified; R47.1 Dysarthria and anarthria; Z80.9 Family history of malignant neoplasm, unspecified; Z82.49 Family history of ischemic heart disease and other diseases of the circulatory system; Z82.3 Family history of stroke
CPT/HCPCS: 10112

== ENCOUNTER → 2017-11-17 | Outpatient (CLI) | payer BC ==
[~2017-11-17] VITALS: Ht 175.3 cm; Wt 97.1 kg
[~2017-11-17] MED LIST changes: +ACETAMINOPHEN325 M1 PO; +ASPIRIN325 PO; +LISINOPRIL20 MG PO; +PROTONIX40 M1 PO; +SENNA8.6 MG PO
[2017-11-17 14:19] VITALS: BP 169/94
[2017-11-17 15:26] LABS: ABSOLUTE NEUTROPHILS 3.4 thou/uL (1.4-8.2); BASOPHILS 1.2 % (0.0-2.0); EOSINOPHILS 6.8 % (0.0-3.0); HEMATOCRIT 38.3 % (42.0-52.0); LYMPHOCYTES 37.7 % (24.0-44.0); MCH 30.4 pg (26.0-34.0); MCHC 33.8 g/dL (28.0-37.0); MCV 89.9 fL (80.0-100.0); PLATELET COUNT 476 thou/uL (150-400); POLYS 46.3 % (36.0-66.0); RBC 4.26 mil/uL (4.50-6.00); RDW 13.2 % (10.5-14.5); WBC 7.3 thou/uL (4.0-11.0)
[2017-11-17 15:42] LABS: ALBUMIN 3.7 g/dL (3.4-5.0); ANION GAP 8 mmol/L (7-16); BUN 17 mg/dL (7-18); CALCIUM 9.7 mg/dL (8.5-10.1); CHLORIDE 103 mmol/L (98-107); CHOLESTEROL 154 mg/dL (<200); CO2 28 mmol/L (21-32); CREATININE 1.7 mg/dL (0.7-1.3); GLUCOSE 92 mg/dL (74-106); HDL CHOLESTEROL 41 mg/dL (>40); LDL CHOLESTEROL 84 mg/dL (<100); POTASSIUM 4.4 mmol/L (3.5-5.1); SGOT 19 U/L (15-37); SGPT 47 U/L (30-65); SODIUM 139 mmol/L (136-145); TC:HDL 3.8 Ratio (Not establshd); TOTAL BILIRUBIN 0.4 mg/dL (<0.1-1.0); TOTAL PROTEIN 8.1 g/dL (6.4-8.2); TRIGLYCERIDE 146 mg/dL (<150); VLDL 29 mg/dL (<40)
[2017-11-18 04:12] LABS: GLYCOHEMOGLOBIN (HGB A1C) 6.5 % (4.8-5.6)
== END ==
LOC: SEN 08:40
PROVIDERS: Nurse Practitioner Family
DX: I10 Essential (primary) hypertension (principal); I63.9 Cerebral infarction, unspecified; E78.5 Hyperlipidemia, unspecified; E11.8 Type 2 diabetes mellitus with unspecified complications

== ENCOUNTER → 2017-12-15 | Outpatient (CLI) | payer OTHER ==
[~2017-12-15] VITALS: Ht 172.7 cm; Wt 95.7 kg
[2017-12-15 13:13] VITALS: BP 134/76
== END ==
LOC: SEN 13:10
DX: M79.604 Pain in right leg (principal); M62.838 Other muscle spasm; I10 Essential (primary) hypertension; E11.9 Type 2 diabetes mellitus without complications

== ENCOUNTER → 2018-01-12 | Outpatient (CLI) | payer OTHER ==
[~2018-01-12] VITALS: Ht 172.7 cm; Wt 95.3 kg
[~2018-01-12] MED LIST changes: +LOVASTATIN 20 M20 MG
[2018-01-12 13:15] VITALS: BP 126/75
== END ==
LOC: SEN 08:46
DX: Z09 Encounter for follow-up examination after completed treatment for conditions other than malignant neoplasm (principal); I10 Essential (primary) hypertension; E11.9 Type 2 diabetes mellitus without complications; E78.00 Pure hypercholesterolemia, unspecified; Z87.891 Personal history of nicotine dependence

== ENCOUNTER → 2018-01-26 | Outpatient (CLI) | payer OTHER ==
[~2018-01-26] MED LIST changes: +GLUCOTROL5 MG PO; +NORVASC5 MG PO
[2018-01-26 15:43] VITALS: BP 122/80
== END ==
LOC: SEN 09:06
DX: Z09 Encounter for follow-up examination after completed treatment for conditions other than malignant neoplasm (principal); I10 Essential (primary) hypertension; E11.9 Type 2 diabetes mellitus without complications; F17.200 Nicotine dependence, unspecified, uncomplicated; F10.99 Alcohol use, unspecified with unspecified alcohol-induced disorder

== ENCOUNTER → 2018-03-02 | Outpatient (CLI) | payer OTHER ==
[~2018-03-02] VITALS: Ht 167.6 cm; Wt 99.3 kg
[2018-03-02 13:50] VITALS: BP 159/90
[2018-03-03 04:13] LABS: GLYCOHEMOGLOBIN (HGB A1C) 5.3 % (4.8-5.6)
== END ==
LOC: SEN 08:23
PROVIDERS: Emergency Medicine
DX: Z09 Encounter for follow-up examination after completed treatment for conditions other than malignant neoplasm (principal); I10 Essential (primary) hypertension; E11.9 Type 2 diabetes mellitus without complications; E78.00 Pure hypercholesterolemia, unspecified; I44.7 Left bundle-branch block, unspecified; F10.99 Alcohol use, unspecified with unspecified alcohol-induced disorder; Z87.891 Personal history of nicotine dependence

== ENCOUNTER → 2018-05-04 | Outpatient (CLI) | payer OTHER ==
[~2018-05-04] VITALS: Ht 167.6 cm; Wt 104.0 kg
[2018-05-04 13:34] VITALS: BP 159/92
== END ==
LOC: SEN 09:15
DX: Z09 Encounter for follow-up examination after completed treatment for conditions other than malignant neoplasm (principal); E11.9 Type 2 diabetes mellitus without complications; E78.5 Hyperlipidemia, unspecified; I10 Essential (primary) hypertension; Z87.891 Personal history of nicotine dependence

== ENCOUNTER → 2021-02-13 | Outpatient (CLI) | payer OTHER | LOC: SJCVC 14:17 | PROVIDERS: ATTEND Internal Medicine Cardiovascular Disease | DX: R94.31 Abnormal electrocardiogram [ECG] [EKG] (principal); I11.9 Hypertensive heart disease without heart failure; I42.9 Cardiomyopathy, unspecified; R06.00 Dyspnea, unspecified; F17.200 Nicotine dependence, unspecified, uncomplicated; Z88.1 Allergy status to other antibiotic agents; Z79.82 Long term (current) use of aspirin; Z79.899 Other long term (current) drug therapy; Z86.73 Personal history of transient ischemic attack (TIA), and cerebral infarction without residual deficits; E11.9 Type 2 diabetes mellitus without complications ==

== ENCOUNTER 2021-04-18 18:29 | Inpatient (IN) | payer OTHER ==
[~2021-04-18] VITALS: Ht 175.3 cm; Wt 95.3 kg
--- NOTE | ~2021-04-18 | HC ---
[facility] [place] [address] CONSULTATION Name: THOMAS ADRIAN JR Room #: 360-P [facility] IN ..#: [id number] Admission: 04/18/21 Attend Phys: Theodore Kim MD Discharge: Date of : 62 Report #: [id number] THIS REPORT FOR: cc: Ayaz Villanueva MD, Shyam MD Smithson, David G. MD ~ DATE OF SERVICE: 04/22/2021 HISTORY OF PRESENT ILLNESS: The patient is a 60-year-old male with a right cerebellar CVA and vertebral artery dissection. He was originally admitted on 04/18/2021 with complaints of dizziness. He was not felt to be a candidate for TPA. The MRI scanner was down, but he is going to be getting the MRI today. He feels that the dizziness is improving and that he is pretty close to his baseline. We are seeing him in rehabilitation medicine consultation. His past medical history includes a prior left CVA with right hemiparesis with which he had some baseline dysarthria and very mild right-sided weakness. This was a past left subcortical basal ganglia CVA. He also has a history of chronic kidney disease, diabetes mellitus type 2, hyperlipidemia. HABITS: Include tobacco 3-4 cigarettes per day and alcohol use 3 times a week. SOCIAL HISTORY: Lives with his son in an apartment. Son works during the day. The patient was premorbidly ambulatory without gait aids. There are 4 steps in. REVIEW OF SYSTEMS: Notes that the dizziness is getting better. No complaints of chest pain, shortness of breath or abdominal discomfort. PHYSICAL EXAMINATION: GENERAL: A 60-year-old -Citizen Of [place] male, in no obvious distress. VITAL SIGNS: Last recorded temperature 36.8, pulse 83, respirations 18, blood pressure 143/94. NEUROLOGIC: He is alert, follows basic 1-step commands. Appears appropriate. EOMs are full. No nystagmus. He does have some mild dysarthria, which was noted to be premorbid. EXTREMITIES: He has functional range of motion of both upper extremities and strength appears to be at least a grade 4/5. He does well as far as fine finger dexterity and was able to do well with hdrfmp-qt-nvcq as well as qahg-zq-lbqs. Tone appeared to be intact. Functionally, he was standby assistance, sit to stand, was able to ambulate min assist for 45 feet without an assistive device. Tinetti score for balance was quite good at 26/28. He was seen by OT with lower extremity dressing supervision. ASSESSMENT: A 60-year-old -Citizen Of [place] male with the following problem list: 1. Right cerebellar cerebrovascular accident. Noted vertebral artery dissection. [place] [address] CONSULTATION Name: NGUYỄNTHOMAS Room #: 360-P [facility] IN M.R.#: [id number] Admission: 04/18/21 Attend Phys: Theodore Kim MD Discharge: Date of : 62 Report #: [id number] 2. Prior left subcortical basal ganglia cerebrovascular accident with some baseline mild dysarthria and right right-sided weakness. 3. Chronic kidney disease. 4. Diabetes mellitus type 2. 5. Hypertension. PLAN: The patient feels the dizziness is improving. Functionally, he appears too high level to warrant an acute inpatient 5-North rehabilitation stay. Would anticipate he should be able to return back to the home setting with likely some home health care versus outpatient as he further medically stabilizes. Thank you for asking us to assist in this patient's care. By: 0917 [id number] Johnie Wilkerson MD /nt
[2021-04-18 18:30] VITALS: BP 167/104
[2021-04-18 18:59] LABS: ABSOLUTE NEUTROPHILS 3.7 thou/uL (1.4-8.2); BASOPHILS 1.3 % (0.0-2.0); HEMATOCRIT 43.5 % (42.0-52.0); HEMOGLOBIN 15.3 gm/dL (14.0-18.0); LYMPHOCYTES 34.2 % (24.0-44.0); MCH 31.9 pg (26.0-34.0); MCHC 35.2 g/dL (28.0-37.0); MCV 90.6 fL (80.0-100.0); PLATELET COUNT 412 thou/uL (150-400); POLYS 51.5 % (36.0-66.0); RDW 13.4 % (10.5-14.5); WBC 7.2 thou/uL (4.0-11.0)
[2021-04-18 19:05] LABS: CREATININE 1.8 mg/dL (0.7-1.3); POTASSIUM 4.4 mmol/L (3.5-5.1)
[2021-04-18 19:12] LABS: CALCIUM 8.9 mg/dL (8.5-10.1)
[2021-04-18 19:18] LABS: APTT 28.6 Seconds (24.5-32.8); INR 0.94; PROTIME 10.3 Seconds (10.5-12.1)
[2021-04-18] MEDS ORDERED: CARVEDILOL25 MG PO (23:40)
[2021-04-18] MEDS ORDERED: GLIPIZIDE ER5 MG PO (23:41)
[2021-04-19 05:59] LABS: CHOLESTEROL 293 mg/dL (<200); HDL CHOLESTEROL 39 mg/dL (>40); TC:HDL 7.5 Ratio (Not establshd); TRIGLYCERIDE 535 mg/dL (<150); VLDL 107 mg/dL (<40)
--- NOTE | 2021-04-19 11:32 | EKG ---
[address] [place] [address] ELECTROCARDIOGRAM REPORT Name: THOMAS ADRIAN JR Room #: 170-8 ADM IN M.R.#: [id number] Admission: 04/18/21 Attend Phys: Theodore Kim MD Discharge: Date of : 62 Report #: [id number] [facility] ED Test Date: 2021-04-18 Test Time: 19:49:42 Pat Name: THOMAS ADRIAN Department: Room: 170 Gender: M Rn School: saray : 1960 Requested By: Farrah Montenegro Order Number: [id number] MD: Antonio Louis Measurements Intervals [place] Rate: 84 P: 45 DC: 153 QRS: 5 QRSD: 89 T: QT: 364 QTc: 431 Interpretive Statements Sinus rhythm Left ventricular hypertrophy Nonspecific T abnormalities, lateral leads Baseline wander in lead(s) V6 Compared to ECG 10/26/2017 23:00:20 Left ventricular hypertrophy now present T-wave abnormality now present Left bundle-branch block no longer present Electronically Signed On 04-19-2021 11:32:26 CDT by Antonio Louis [email or web address] <ELECTRONICALLY SIGNED> By: Antonio Louis MD, FAC 04/19/21 1132 48 48 Antonio Louis MD, [facility] /EPI
[2021-04-19 18:36] LABS: CALCIUM 8.9 mg/dL (8.5-10.1); CREATININE 1.8 mg/dL (0.7-1.3); POTASSIUM 4.6 mmol/L (3.5-5.1)
[2021-04-19 21:40] VITALS: BP 135/86
[2021-04-20 03:05] LABS: GLYCOHEMOGLOBIN (HGB A1C) 11.8 % (4.8-5.6)
--- NOTE | 2021-04-20 12:23 | 2DMMODE ---
[facility] [address] [place] [address] 2 D/M-MODE ECHOCARDIOGRAM Name: THOMAS ADRIAN Room #: 170-8 ADM IN M.R.#: [id number] Admission: 04/18/21 Attend Phys: Theodore Kim MD Discharge: Date of : 62 Report #: [id number] THIS REPORT FOR: cc: Ayaz Villanueva MD, Shyam MD Lundgren,Cliff Hollis MD [facility] ~ APPROVED REPORT Study performed: 04/20/2021 11:27:49 EXAM: Comprehensive 2D, Doppler, and color-flow Echocardiogram Patient Location: ER Room #: 8 Status: routine BSA: 2.17 HR: 75 bpm BP: 162/95 mmHg Rhythm: NSR Other Information Study Quality: Good Indications CVA/TIA Diabetes Hypertension/HDD 2D Dimensions RVDd: 36.35 mm IVSd: 13.22 (7-11mm) LVOT Diam: 21.16 (18-24mm) LVDd: 47.73 mm PWd: 13.45 (7-11mm) Ascending Ao: 27.54 (22-36mm) LVDs: 32.78 (25-40mm) Left Atrium: 37.35 (27-40mm) Aortic Root: 31.34 mm IVC: 15.00 mm Volumes Left Atrial Volume (Systole) Single Plane 4CH: 30.47 mL Single Plane 2CH: 39.10 mL LA ESV Index: 18.00 mL/m2 Aortic Valve AoV Peak Moody.: 1.44 m/s AO Peak Gr.: 8.29 mmHg LVOT Max P.55 mmHg [facility] [address] [address] 2 D/M-MODE ECHOCARDIOGRAM Name: THOMAS ADRIAN Room #: 170-8 ADM IN [facility].#: [id number] Admission: 04/18/21 Attend Phys: Theodore Kim MD Discharge: Date of : 62 Report #: [id number] LVOT Max V: 0.80 m/s MAKEDA Vmax: 1.95 cm2 Mitral Valve E/A Ratio: 0.6 MV Decel. Time: 233.48 ms MV E Max Moody.: 0.44 m/s MV A Moody.: 0.69 m/s MV PHT: 67.71 ms IVRT: 110.73 ms Pulmonary Valve PV Peak Moody.: 1.09 m/s PV Peak Gr.: 4.71 mmHg Pulmonary Vein P Vein S: 0.42 m/s P Vein A: 0.21 m/s P Vein D: 0.27 m/s P Vein A Dur.: 101.5 msec P Vein S/D Ratio: 1.56 Left Ventricle The left ventricle is normal size. There is normal LV segmental wall motion. There is normal left ventricular wall thickness. Left ventricular systolic function is normal. The left ventricular ejection fraction is within the normal range. LVEF 60%. Mild diastolic dysfunction Right Ventricle The right ventricle is normal size. The right ventricular systolic function is normal. Atria The left atrium size is normal. No shunting by contrast bubble injection The right atrium size is normal. Aortic Valve The aortic valve is normal in structure. No aortic regurgitation is present. There is no aortic valvular stenosis. Mitral Valve The mitral valve is normal in structure. There is no mitral valve regurgitation noted. No evidence of mitral valve stenosis. Tricuspid Valve The tricuspid valve is normal in structure. There is no tricuspid valve regurgitation noted. [facility] [address] [place] [address] 2 D/M-MODE ECHOCARDIOGRAM Name: THOMAS ADRIAN Room #: 170-8 ADM IN M.R.#: [id number] Admission: 04/18/21 Attend Phys: Theodore Kim MD Discharge: Date of : 62 Report #: [id number] Pulmonic Valve The pulmonary valve is normal in structure. There is no pulmonic valvular regurgitation. Great Vessels The aortic root is normal in size. IVC is normal in size and collapses >50% with inspiration. Pericardium There is no pericardial effusion. <Conclusion> Left ventricular systolic function is normal. There is normal LV segmental wall motion. LVEF 60%. Mild diastolic dysfunction No shunting by contrast bubble injection The aortic valve is normal in structure. No aortic regurgitation or stenosis. The mitral valve is normal in structure. No mitral valve regurgitation There is no pericardial effusion. <ELECTRONICALLY SIGNED> By: Cliff Schmidt MD, [facility] 04/20/21 1223 1223 1223 Cliff Schmidt MD, FAC /INF
[2021-04-20 17:35] VITALS: BP 132/96
[2021-04-20 18:11] VITALS: BP 165/110
[2021-04-20 18:40] VITALS: BP 155/100
--- NOTE | 2021-04-20 21:34 | NUR ---
PT ADMITTED AROUND CHANGE OF SHIFT. PT CHEERFUL HAPPY. DENIES ANY DIZZINESS OR WEAKNESS. DENIES BEING A FALL RISK AND DOES NOT WANT TO WEAR YELLOW SOCKS. PT DID AGREE TO NOTIFY NURSE WHEN TRANSFERING AND TO PUT ON SHOES. PT NOTED TO HAVE STEADY GAIT, NO DRIFT WITH [facility] SCALE. PT STATES HE LIVES WITH HIS SON AND PLANS ON DC IN AM. MED HX DM, HTN, LBBB, CIGARETTE SMOKER-DENIES WANTING NICOTENE PATCH, ETOH USE WEEKLY SOCIAL, PREVIOUS CVA NO RESIDUAL. R THORACOTOMY/DECORTICATION. PT HAD DINNER.
[2021-04-21 04:50] VITALS: BP 182/114
[2021-04-21 06:15] VITALS: BP 164/100
[2021-04-21 07:21] VITALS: BP 163/104
[2021-04-21 11:09] VITALS: BP 139/97
[2021-04-21 11:52] LABS: CALCIUM 9.1 mg/dL (8.5-10.1); CREATININE 1.5 mg/dL (0.7-1.3)
--- NOTE | 2021-04-21 13:20 | NUR ---
INITIAL ASSESSMENT: Received consult. SW reviewed chart and spoke with nursing and attending physician. Pt was admitted from home due to CVA. MRI is pending. Pt had negative COVID test and has not received a COVID vaccine. SW spoke with pt via phone. Introduced role of SW. Pt is alert/orientated and states that he lives at home. Pt's son lives with him. Prior to admission, pt was independent with ADLs. No use of DME. There are 4 steps to enter pt's home. No steps inside. Pt has been to [facility] in the past following CVA in 2018. No hx of services. Pt's PCP is Dr. Fransisco العراقي. PT/OT have evaluated pt. Pt's goal is to return home when medically stable. SW is following to assist as needed with discharge planning.
[2021-04-21 16:50] VITALS: BP 142/95
[2021-04-21 19:20] VITALS: BP 124/83
[2021-04-22] VITALS (10 sets, daily range): BP systolic 107–169; BP diastolic 66–105
--- NOTE | 2021-04-22 04:07 | NUR ---
NOTED AM BLOOD PRESSURE 169/94 WITH HR 78 BPM. PT C/O 5/10 "SHARP" HEADACHE. PT DID SIT UP IN BED AND COMPLAIN OF SUDDEN DIZZINESS. DENIED ANY SENSE OF THE ROOM SPINNING BUT DID STATE HE FELT LIKE HE WAS GOING TO TIP OVER. PT PT DID LAY BACK DOWN. DR. GARCIA'S NOTE VIEWED. PT GIVEN HYDRALAZINE 10MG IV AND 650MG ORAL TYLENOL. BRIEF NIH PERFORMED AT THAT TIME. DID NOT DETECT ANY CHANGE FROM PREVIOUS SCORES.
--- NOTE | 2021-04-22 15:30 | NUR ---
CHRIS reviewed chart and spoke with nursing and attending physician. Pt had MRI earlier today. [facility] evaluated pt and is too high level for admission to . SW met with pt bedside to discuss discharge plans. Pt states he would like to visit with the physicians before making a decision about HH services. CHRIS is following to assist as needed with discharge planning.
--- NOTE | 2021-04-22 18:32 | NUR ---
RN ASSUMED PT'S CARE AT 0700AM, PT IS A&OX4, PT'S VS ARE STABLE, PT STILL HAS R ARM WEAKNESS, BUT PT DENIES SOB AND PAIN AT DAY SHIFT.
[2021-04-23] VITALS (8 sets, daily range): BP systolic 83–139; BP diastolic 52–93
--- NOTE | 2021-04-23 05:13 | NUR ---
PT RESTING QUIETLY. C/O MILD AVILA THIS AM. NOTIFIED TERADATA ARCHITECT. FIORICET TO BE GIVEN WHEN AVAILABLE FROM PHARMACY . PT HAS NO OTHER C/O THIS AM . SPECCH IS STILL SLIGHTLY SLURRED BEGINNING OF SHIFT. PT STATED HIS SPEECH HAS BEEN SLURRED FROM HIS LAST CVA. OTHER PARTS OF NIH ARE NORMAL. PT ABLE TO AMBULATE TO BR WITH STEADY GAIT. DENIED DIZZINESS OR NAUSEA.
--- NOTE | 2021-04-23 07:39 | NUR ---
PT C/O AVILA 10/01 THIS AMD AT 0532. MEDICATED WITH 1 FIORICET. PAIN RATED 4/10 STILL AFTER PAIN MED. NOTIFIED DAY SHIFT NS IN REPORT. SHE IS CALLING DR LIM TO LET HIM KNOW OF CONTINUED HEADACHE. NEUROLOGICAL ASSESSMENT RENAINS THE SAME.
[2021-04-23 12:56] LABS: CALCIUM 8.6 mg/dL (8.5-10.1); CREATININE 1.8 mg/dL (0.7-1.3); POTASSIUM 3.8 mmol/L (3.5-5.1)
--- NOTE | 2021-04-23 16:26 | NUR ---
SW reviewed chart and spoke with nursing and attending physician. Pt is progressing towards goals for discharge. SW discussed case with [facility] vocational rehabilitation specialist. Pt is too high level for inpt acute rehab. Pt is also not wanting to go to rehab. Pt to be monitored by neuro due to new CVA. Plavix is on hold. Anticipate pt will discharge home with services when medically stable. CHRIS is following to assist as needed with discharge planning.
--- NOTE | 2021-04-23 18:24 | NUR ---
RN ASSUMED PT'S CARE AT 0700AM, PT IS A&OX4, PT IS ON ROOM AIR, PT DENIES SOB AND N/V AT DAY SHIFT, RN HAS CALLED DR TO REPORT PT'S HEADACHE, NEW ORDER HEAD CT SCAN , RESULTS SHOW UNCHANGED EVOLVING RIGT CEREBELLAR INFARACT.PT STILL HAS SLIGHTLY SLURRED SPEACH , BUT NO NEW S/S OF CVA, PT STARTS IV FLUID PER ORDER, WE WILL KEEP EYE ON PT.
[2021-04-24 03:53] VITALS: BP 124/72
--- NOTE | 2021-04-24 04:23 | NUR ---
PROGRESS PT A/O X4. PT DENIES DIZZINESS EXCEPT IF HE GETS UP TOO FAST. STATES HEADACHE HAS RESOLVED AND DENIED NEED FOR MEDICATION. UP AD JANA VOIDING QS IVF'S INFUSING ORDERED. SPEECH REMAINS SLIGHTLY SLURRED BUT FAMILY STATED THAT IT IS HIS BASELINE HE WAS LEFT WITH A SPEECH DEFICIT AFTER LAST CVA. UP AD JANA GAIT STEADY VOIDING QS AND TOLERATING PO FOOD AND FLUIDS. ACCUCHECKS AND SSI CONTINUE. CONTINUE POC.
[2021-04-24 07:23] VITALS: BP 152/79
[2021-04-24 11:25] VITALS: BP 120/74
[2021-04-24 12:03] LABS: HEMATOCRIT 40.7 % (42.0-52.0); MCH 31.6 pg (26.0-34.0); MCHC 34.5 g/dL (28.0-37.0); MCV 91.6 fL (80.0-100.0); RBC 4.44 mil/uL (4.50-6.00); RDW 13.5 % (10.5-14.5); WBC 8.3 thou/uL (4.0-11.0)
[2021-04-24 12:04] LABS: CALCIUM 8.7 mg/dL (8.5-10.1); CREATININE 1.5 mg/dL (0.7-1.3); POTASSIUM 4.6 mmol/L (3.5-5.1)
--- NOTE | 2021-04-24 14:37 | NUR ---
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 TRUCK DRIVING INSTRUCTOR S/W RN AND PATIENT. PATIENT DEMONSTRATED THE ABILITY TO LIST HOME MEDICATIONS. COMPLETED INFORMAL MEMORY ASSESSMENT, NO CHANGES IN PATIENT'S PERFORMANCE IN COMPARISION TO EVAL. PATIENT ORIENTED X4. STATED HE WAS IN THE HOSPITAL BECAUSE HE HAD A STROKE. TRUCK DRIVING INSTRUCTOR SUSPECTS PATIENT REMAINS AT BASELINE FUNCTIONING. 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
--- NOTE | 2021-04-24 15:09 | NUR ---
WEIGH AND CHARGE WORKER MET WITH PATIENT ON 04/23/21 AND PATIENT DECLINING ACUTE REHAB STAY. SPOKE WITH D/C SUPERVISOR ROLLING ROOM THIS DATE AND CONFIRMED THAT THERE WAS NO NEED TO REQUEST AUTHORIZATION. KARSTEN D/C SUPERVISOR ROLLING ROOM, IN AGREEMENT.
[2021-04-24 15:43] VITALS: BP 138/87
--- NOTE | 2021-04-24 16:36 | NUR ---
SW reviewed chart and spoke with nursing and attending physician. Pt is progressing towards goals for discharge. Pt is progressing towards goals for discharge. [facility] liaison met with pt at bedside to discuss home health services. Pt declines needing HH when discharged. PT/OT working with pt. Case discussed with [facility] regional rehabilitation director. Pt is too high level for admission to inpt acute rehab. Plan is for pt to discharge home when medically stable. SW is following to assist as needed with discharge planning.
[2021-04-24 19:59] VITALS: BP 121/76
[2021-04-25 04:25] VITALS: BP 149/95
[2021-04-25 07:23] VITALS: BP 150/97
[2021-04-25 11:26] VITALS: BP 157/98
[2021-04-25 15:30] VITALS: BP 129/79
[2021-04-25 19:50] VITALS: BP 153/90
[2021-04-26] VITALS (10 sets, daily range): BP systolic 125–169; BP diastolic 88–117
--- NOTE | 2021-04-26 03:18 | NUR ---
resting quietly. continues on iv fluids. headache under control tonight. no complaints.
[2021-04-26] MEDS ORDERED: FENOFIBRATE54 MG PO ×2 (10:38→10:50)
[2021-04-26] MEDS ORDERED: LIPITOR40 MG PO ×2 (10:39→10:50)
[2021-04-26] MEDS ORDERED: CARVEDILOL25 MG PO (10:39)
[2021-04-26] MEDS ORDERED: ADULT LOW DOSE81 MG PO ×2 (10:40→10:50)
[2021-04-26] MEDS ORDERED: TOPAMAX 25 MG T25 M1 PO ×2 (10:41→10:50)
[2021-04-26] MEDS ORDERED: TRADJENTA5 MG PO ×2 (10:41→10:50)
[2021-04-26] MEDS ORDERED: GLUCOTROL5 MG PO ×2 (10:42→10:50)
[2021-04-26] MEDS ORDERED: BENAZEPRIL HCL20 MG PO (10:50)
[2021-04-26 12:06] LABS: ANA INTERPRETATION Negative (Negative)
[2021-04-26] MEDS ORDERED: METFORMIN HCL500 M3 PO (14:53)
[2021-04-27] MEDS ORDERED: GLIPIZIDE 10 MG10 MG PO (11:53)
[2021-04-27 21:05] LABS: SYPHILIS AB Non Reactive (Non Reactive)
== END 2021-04-26 19:04 | disposition home or self-care (01) | DRG 64 ==
LOC: ER 18:29 → EROBS 21:15 → 3W 21:15
PROVIDERS: Emergency Medicine; Hospitalist; Nurse Practitioner Family; Psychiatry & Neurology Neuromuscular Medicine; ADMIT Hospitalist; ATTEND Hospitalist
DX: I63.89 Other cerebral infarction (principal); I77.74 Dissection of vertebral artery; I62.9 Nontraumatic intracranial hemorrhage, unspecified; N17.9 Acute kidney failure, unspecified; E87.1 Hypo-osmolality and hyponatremia; G93.40 Encephalopathy, unspecified; E78.00 Pure hypercholesterolemia, unspecified; E11.22 Type 2 diabetes mellitus with diabetic chronic kidney disease; Z20.822 Contact with and (suspected) exposure to COVID-19; E78.5 Hyperlipidemia, unspecified; I12.9 Hypertensive chronic kidney disease with stage 1 through stage 4 chronic kidney disease, or unspecified chronic kidney disease; N18.30 Chronic kidney disease, stage 3 unspecified; R41.0 Disorientation, unspecified; Z28.21 Immunization not carried out because of patient refusal; Z87.891 Personal history of nicotine dependence; Z91.14 Patient's other noncompliance with medication regimen
CPT/HCPCS: 10879